=== PATIENT | male | born 1990 | race Caucasian/White ===

== ENCOUNTER 2017-04-19 21:50 | Emergency (ER) | payer SELFPAY ==
[2017-04-19] MEDS ORDERED: Albuterol/Ipratropium 3.0-0.5 MG/3 ML Neb Soln NEB ONE (22:02)
[2017-04-19] MEDS ORDERED: methylPREDNISolone Sodium Succinate 125 MG/2 ML SDV IM ONE (22:02)
--- NOTE | 2017-04-19 22:10 | EDM.PDOC ---
ED HPI GENERAL MEDICAL PROBLEM - General Chief Complaint: Asthma Stated Complaint: ASTHMA Time Seen by Provider: 04/19/17 21:59 - History of Present Illness INITIAL COMMENTS - FREE TEXT/NARRATIVE: HISTORY AND PHYSICAL: History of present illness: The patient is a 27-year-old male with a history of asthma since he was a child but does not get frequent flareups and says that for the last 2 2-1/2 weeks he has been having wheezing which doesn't seem to improve with his inhaler. He says it's worse at nighttime. The patient has had a dry cough but nonproductive and he has not had fevers chills sore throat abdominal pain vomiting or diarrhea. Says he has no chest pain and only feels short of breath which waxes and wanes in intensity but never seems to improve. The patient has not been seen by provider and has not taken prednisone or any steroids in many years. Patient says he is running out of his inhaler because he is using it more than usual. The patient does not smoke or have any significant social history and has no cardiac or other pulmonary problems. He is eating and drinking normally and says he hydrates. The patient thinks it may be he has some seasonal allergies as he has had some nasal drainage and stuffiness but he is not here for that. Review of systems: As per history of present illness and below otherwise all systems reviewed and negative. Past medical history: As per history of present illness and as reviewed below otherwise noncontributory. Surgical history: As per history of present illness and as reviewed below otherwise noncontributory. Social history: No reported history of drug or alcohol abuse. Family history: As per history of present illness and as reviewed below otherwise noncontributory. Physical exam: Gen.: Well-developed well-nourished male who is nontoxic and vital signs are noted by me. HEENT: Atraumatic, normocephalic, negative for conjunctival pallor or scleral icterus, mucous membranes moist, throat clear, neck supple, nontender, trachea midline. Lungs: Bilateral expiratory wheezing with good air exchange and no sensory muscle use, no stridor, no work of breathing breath sounds equal bilaterally, chest nontender. Heart: S1S2, regular rate and rhythm no overt murmurs Abdomen: Soft, nondistended, nontender. NABS. Pelvis: Deferred Genitourinary: Deferred. Rectal: Deferred. Extremities: Atraumatic, negative for cords or calf pain. Neurovascular unremarkable. Neuro: Awake, alert, oriented. Cranial nerves II through XII unremarkable. Cerebellum unremarkable. Motor and sensory unremarkable throughout. Exam nonfocal. Skin: No evidence of any rashes or lesions overtly seen and turgor is normal. There is no diaphoresis Diagnostics: Therapeutics: DuoNeb Solu-Medrol spacer and spacer teaching I discussed with the patient that he can use his inhaler for his asthma attacks but if he does not get the steroids he will not completely treated and will keep recurring. We will give him Solu-Medrol here and prednisone for home but he can start tomorrow. We will give him a refill on his inhaler and a spacer to optimize delivery of the medication. I've advised him on need to follow-up in the clinic and for hydration and reasons to return to the ED After nebulizer treatment patient is clear to auscultation and feels much improved. [facility] and he will fill the prednisone tomorrow Impression: Acute asthma exacerbation Definitive disposition and diagnosis as appropriate pending reevaluation and review of above. - Related Data Allergies Allergy/AdvReac Type Severity Reaction Status Date / Time No Known Allergies Allergy Verified 04/19/17 21:54 Home Meds: Home Meds Albuterol [IJD: Ventolin HFA] 1 puff INH .TWICE DAILY 04/19/17 [History] Past Medical History HEENT History: Reports: Hard of Hearing Cardiovascular History: Reports: None Respiratory History: Reports: Asthma Gastrointestinal History: Reports: None Genitourinary History: Reports: None Musculoskeletal History: Reports: None Neurological History: Reports: None Psychiatric History: Reports: None Endocrine/Metabolic History: Reports: None Hematologic History: Reports: None Oncologic (Cancer) History: Reports: None Dermatologic History: Reports: None - Infectious Disease History Infectious Disease History: Reports: Chicken Pox - Past Surgical History Male Surgical History: Reports: None Social & Family History - Family History Family Medical History: Noncontributory - Tobacco Use Smoking Status *Q: Never Smoker - Recreational Drug Use Recreational Drug Use: No ED ROS GENERAL - Review of Systems Review Of Systems: ROS reveals no pertinent complaints other than HPI. ED EXAM, GENERAL - Physical Exam Exam: See Below (See dictation) Course - Vital Signs Last Recorded V/S: Last Vital Signs Temp 36.2 C 04/19/17 21:55 Pulse 83 04/19/17 21:55 Resp 16 04/19/17 21:55 BP 131/78 04/19/17 21:55 Pulse Ox 96 04/19/17 21:55 - Orders/Labs/Meds Orders: Active Orders 24 hr Category Date Time Status Communication Order [RC] STAT Care 04/19/17 22:03 Active RT Aerosol Therapy [RC] ASDIRECTED Care 04/19/17 22:03 Active Meds: Medications Discontinued Medications Generic Name Dose Route Start Last Admin Trade Name Freq PRN Reason Stop Dose Admin Albuterol/Ipratropium 3 ml 04/19/17 22:02 04/19/17 22:23 Duoneb 3.0-0.5 Mg/3 Ml NEB 04/19/17 22:03 3 ml ONETIME ONE Administration Methylprednisolone Sodium Succinate 125 mg 04/19/17 22:02 04/19/17 22:23 Solu-Medrol IM 04/19/17 22:03 125 mg ONETIME ONE Administration Departure - Departure Time of Disposition: 22:44 Disposition: Home, Self-Care 01 Condition: Good Clinical Impression: Acute asthma exacerbation Qualifiers: Asthma severity: mild persistent Qualified Code(s): J45.31 - Mild persistent asthma with (acute) exacerbation - Discharge Information Forms: ED Department Discharge Additional Instructions: The following information is given to patients seen in the emergency department who are being discharged to home. This information is to outline your options for follow-up care. We provide all patients seen in our emergency department with a follow-up referral. The need for follow-up, as well as the timing and circumstances, are variable depending upon the specifics of your emergency department visit. If you don't have a primary care physician on staff, we will provide you with a referral. We always advise you to contact your personal physician following an emergency department visit to inform them of the circumstance of the visit and for follow-up with them and/or the need for any referrals to a consulting specialist. The emergency department will also refer you to a specialist when appropriate. This referral assures that you have the opportunity for followup care with a specialist. All of these measure are taken in an effort to provide you with optimal care, which includes your followup. Under all circumstances we always encourage you to contact your private physician who remains a resource for coordinating your care. When calling for followup care, please make the office aware that this follow-up is from your recent emergency room visit. If for any reason you are refused follow-up, please contact the [facility] emergency department at and ask to speak to the emergency department charge nurse. [facility] Primary care- Internal Medicine and Family [address] [id number] Please use your inhaler every 6 hours [id number] for the next 2 days and then as needed every 6 hours. Please take prednisone prescription you have been given starting tomorrow. Push hydration and call for clinic follow-up appointment in the next few days. Return to ER as needed and as discussed. - My Orders Last 24 Hours: My Active Orders 04/19/17 22:03 Communication Order [RC] STAT RT Aerosol Therapy [RC] ASDIRECTED - Assessment/Plan Last 24 Hours: My Active Orders 04/19/17 22:03 Communication Order [RC] STAT RT Aerosol Therapy [RC] ASDIRECTED
[2017-04-19 22:54] VITALS: BP 140/76
== END 2017-04-19 23:09 | disposition home or self-care (01) ==
LOC: MW.ED 21:50
DX: J45.31 Mild persistent asthma with (acute) exacerbation (principal)
CPT/HCPCS: 96372; 99284; J2930; 99283

== ENCOUNTER 2017-05-05 09:58 | Emergency (ER) | payer SELFPAY ==
[2017-05-05] MEDS ORDERED: Albuterol/Ipratropium 3.0-0.5 MG/3 ML Neb Soln NEB ONE (10:02)
[2017-05-05] MEDS ORDERED: predniSONE 20 MG Tab PO ONE (10:02)
--- NOTE | 2017-05-05 10:15 | EDM.PDOC ---
ED HPI GENERAL MEDICAL PROBLEM - General Chief Complaint: Respiratory Problem Stated Complaint: DIFFICULTY BREATHING Time Seen by Provider: 05/05/17 09:59 - History of Present Illness INITIAL COMMENTS - FREE TEXT/NARRATIVE: HISTORY AND PHYSICAL: History of present illness: Agent 27-year-old white male who presents with a concern of asthmatic exacerbation he was seen on or about April 19 in the emergency department put on steroids given breathing treatment has been using his inhaler increasingly since the taper of his steroids he denies fever chills nausea vomiting or other complaints Review of systems: As per history of present illness and below otherwise all systems reviewed and negative. Past medical history: As per history of present illness and as reviewed below otherwise noncontributory. Surgical history: As per history of present illness and as reviewed below otherwise noncontributory. Social history: No reported history of drug or alcohol abuse. Family history: As per history of present illness and as reviewed below otherwise noncontributory. Physical exam: HEENT: Atraumatic, normocephalic, pupils reactive, negative for conjunctival pallor or scleral icterus, mucous membranes moist, throat clear, neck supple, nontender, trachea midline. Lungs: Slightly diminished scattered end expiratory wheezing noted no rhonchi no crackles, breath sounds equal bilaterally, chest nontender. Heart: S1S2, regular, negative for clicks, rubs, or JVD. Abdomen: Soft, nondistended, nontender. Negative for masses or hepatosplenomegaly. Negative for costovertebral tenderness. Pelvis: Stable nontender. Genitourinary: Deferred. Rectal: Deferred. Extremities: Atraumatic, negative for cords or calf pain. Neurovascular unremarkable. Neuro: Awake, alert, oriented. Cranial nerves II through XII unremarkable. Cerebellum unremarkable. Motor and sensory unremarkable throughout. Exam nonfocal. Diagnostics: Chest x-ray Therapeutics: Albuterol ipratropium nebulizer prednisone 60 mg by mouth Impression: #1 asthma with acute exacerbation Definitive disposition and diagnosis as appropriate pending reevaluation and review of above. - Related Data Allergies Allergy/AdvReac Type Severity Reaction Status Date / Time No Known Allergies Allergy Verified 05/05/17 10:17 Home Meds: Home Meds Albuterol [IJD: Ventolin HFA] 2 puff INH ASDIRECTED PRN 04/19/17 [History] Past Medical History HEENT History: Reports: Hard of Hearing Cardiovascular History: Reports: None Respiratory History: Reports: Asthma Gastrointestinal History: Reports: None Genitourinary History: Reports: None Musculoskeletal History: Reports: None Neurological History: Reports: None Psychiatric History: Reports: None Endocrine/Metabolic History: Reports: None Hematologic History: Reports: None Oncologic (Cancer) History: Reports: None Dermatologic History: Reports: None - Infectious Disease History Infectious Disease History: Reports: Chicken Pox - Past Surgical History Male Surgical History: Reports: None Social & Family History - Family History Family Medical History: Noncontributory - Tobacco Use Smoking Status *Q: Never Smoker - Recreational Drug Use Recreational Drug Use: No ED ROS GENERAL - Review of Systems Review Of Systems: ROS reveals no pertinent complaints other than HPI. ED EXAM, GENERAL - Physical Exam Exam: See Below (See dictation) Course - Vital Signs Last Recorded V/S: Last Vital Signs Temp 36.2 C 05/05/17 10:00 Pulse 82 05/05/17 11:04 Resp 18 05/05/17 11:04 BP 122/72 05/05/17 11:04 Pulse Ox 96 05/05/17 11:04 - Orders/Labs/Meds Orders: Active Orders 24 hr Category Date Time Status RT Aerosol Therapy [RC] ASDIRECTED Care 05/05/17 10:02 Active RT Aerosol Therapy [RC] ASDIRECTED Care 05/05/17 10:56 Active Chest 2V [CR] Stat Exams 05/05/17 10:09 Taken Meds: Medications Discontinued Medications Generic Name Dose Route Start Last Admin Trade Name Freq PRN Reason Stop Dose Admin Albuterol 2.5 mg 05/05/17 10:56 05/05/17 11:00 Proventil Neb Soln [facility] 05/05/17 10:57 2.5 mg ONETIME ONE Administration Albuterol/Ipratropium 3 ml 05/05/17 10:02 05/05/17 10:13 Duoneb 3.0-0.5 Mg/3 Ml NEB 05/05/17 10:03 3 ml ONETIME ONE Administration Prednisone 60 mg 05/05/17 10:02 05/05/17 10:24 Prednisone PO 05/05/17 10:03 60 mg ONETIME ONE Administration Departure - Departure Time of Disposition: 11:24 Disposition: Home, Self-Care 01 Condition: Good Clinical Impression: Acute asthma - Discharge Information Referrals: PCP,None [Primary Care Provider] - Forms: ED Department Discharge Additional Instructions: The following information is given to patients seen in the emergency department who are being discharged to home. This information is to outline your options for follow-up care. We provide all patients seen in our emergency department with a follow-up referral. The need for follow-up, as well as the timing and circumstances, are variable depending upon the specifics of your emergency department visit. If you don't have a primary care physician on staff, we will provide you with a referral. We always advise you to contact your personal physician following an emergency department visit to inform them of the circumstance of the visit and for follow-up with them and/or the need for any referrals to a consulting specialist. The emergency department will also refer you to a specialist when appropriate. This referral assures that you have the opportunity for followup care with a specialist. All of these measure are taken in an effort to provide you with optimal care, which includes your followup. Under all circumstances we always encourage you to contact your private physician who remains a resource for coordinating your care. When calling for followup care, please make the office aware that this follow-up is from your recent emergency room visit. If for any reason you are refused follow-up, please contact the [facility] emergency department at and asked to speak to the emergency department charge nurse. Albuterol Medrol as prescribed follow-up clinic as discussed return as needed as discussed - My Orders Last 24 Hours: My Active Orders 05/05/17 10:02 RT Aerosol Therapy [RC] ASDIRECTED 05/05/17 10:09 Chest 2V [CR] Stat 05/05/17 10:56 RT Aerosol Therapy [RC] ASDIRECTED - Assessment/Plan Last 24 Hours: My Active Orders 05/05/17 10:02 RT Aerosol Therapy [RC] ASDIRECTED 05/05/17 10:09 Chest 2V [CR] Stat 05/05/17 10:56 RT Aerosol Therapy [RC] ASDIRECTED
[2017-05-05] MEDS ORDERED: Albuterol 0.083% 2.5 MG/3 ML Neb Soln NEB ONE (10:56)
[2017-05-05 20:19] VITALS: BP 129/77
--- NOTE | 2017-05-07 10:59 | CR ---
EXAM DATE: 05/05/17 PATIENT'S AGE: 27 Patient: MARK STONE Facility: [place], [place] Site . Site : 1990 Study: XRay Chest [id number]/26/2017 10:36:32 AM Ordering Physician: Maia Maldonado Final Report: INDICATION: ASTHMA SOB TECHNIQUE: PA and lateral chest films are submitted. COMPARISON: None. FINDINGS: Hyperinflation. Heart size and pulmonary vasculature within normal limits. Lung bowling are clear. IMPRESSION: No acute infiltrates are identified. Dictated by Venkata Catalan MD @ 05/05/2017 11:00:19 AM Dictated by: Venkata Catalan MD @ 05/05/2017 11:00:27 (Electronic Signature) Report Signed by Proxy. JEANNE
== END 2017-05-05 11:41 | disposition home or self-care (01) ==
LOC: MW.ED 09:58
DX: J45.901 Unspecified asthma with (acute) exacerbation (principal)
CPT/HCPCS: 71020; 94664; 99284; A9270